=== PATIENT | male | born 1970 | race Caucasian/White ===

== ENCOUNTER 2020-05-05 12:38 | Inpatient (IN) | payer MEDICAID, OTHER, SELFPAY ==
[~2020-05-05] VITALS: Ht 185.4 cm; Wt 88.5 kg
[2020-05-05 14:03] LABS: BASO # 0.1 10^3/uL (0.0-0.2); BASO % 0.3 % (0.0-1.0); EOS # 0.2 10^3/uL (0.0-0.5); EOS % 1.1 % (0.0-3.0); HEMATOCRIT 45.2 % (42.0-52.0); HEMOGLOBIN 14.9 g/dl (13.5-17.5); LYMPH # 2.4 10^3/uL (1.5-5.0); LYMPH % 11.4 % (24.0-44.0); MEAN CORPUSCULAR HEMOGLOBIN 29.4 pg (27.0-33.0); MEAN CORPUSCULAR VOLUME 89.3 fl (80.0-96.0); MONO # 1.6 10^3/uL (0.0-0.8); MONO % 7.8 % (0.0-5.0); NEUTROPHILS # 16.5 10^3/uL (1.5-8.5); NEUTROPHILS % 78.9 % (36.0-66.0); PLATELET COUNT, AUTOMATED 265 10^3/uL (150-450); RED BLOOD COUNT 5.06 10^6/uL (4.30-6.10); WHITE BLOOD COUNT 20.9 10^3/uL (4.0-10.0)
[2020-05-05 14:36] LABS: ERYTHROCYTE SEDIMENTATION RATE 15 mm/hr (0-20)
[2020-05-05] MEDS ORDERED: VANCOMYCIN HCL 1,750 MG in D5W 250 ML IV ONE (15:15)
[2020-05-05] MEDS ORDERED: VANCOMYCIN HCL 1,000 MG, VIAL MATE ADAPTER 1 EACH in D5W 250 ML IV ONE (15:30)
[2020-05-05] MEDS ORDERED: VANCOMYCIN HCL 750 MG, VIAL MATE ADAPTER 1 EACH in D5W 250 ML IV ONE (15:30)
[2020-05-05] MEDS ORDERED: SODIUM CHLORIDE 0.9% 1000ML IV SCH (15:30)
[2020-05-05] MEDS ORDERED: ISOVUE-370 76% 100ML VIAL As Ordered ONE (15:32)
--- NOTE | 2020-05-05 15:32 | HPEPDOC ---
General Date of Admission 05/05/20 Date of Service: May 05, 2020 Chief Complaint The patient is a 49-year-old male admitted with a reason for visit of Arm Pain. Source: Patient Timing/Duration: 24 hours Severity: Moderate History of Present Illness Patient is 49 years old male with past medical history of drug abuse presented to the hospital with redness of right antecubital area. Patient stated that yesterday he tried to inject methamphetamine but broke his needle and part of the needle was left inside antecubital area. Today in the morning he noticed significant swelling and erythema of the right antecubital area. In ER patient was found to have low-grade fever with leukocytosis 20.9 and elevated CRP. Patient also stated that he didn't see primary care physician for years. He denied chills, chest pain, palpitations, diarrhea or dysuria Home Medications No Active Prescriptions or Reported Meds Allergies Coded Allergies: Penicillins (Verified Allergy, Unknown, hives, 05/05/20) Past Medical History Medical History Polysubstance abuse Family History I personally reviewed family history and found not pertinent Social History * Smoker: Denies Alcohol: occationally Drugs: marijuana, other (methamphetamine) A-FIB/CHADSVASC A-FIB History Current/History of A-Fib/PAF?: No Current PO Anticoag Therapy: No Review of Systems Constitutional: Reports: Fever; Denies: Chills Eyes: Denies: Pain ENT: Denies: Head Aches Skin: Reports: Other (right antecubital erythema) Pulmonary: Denies: Dyspnea Cardiovascular: Denies: Chest Pain Gastrointestinal: Denies: Nausea Genitourinary: Denies: Dysuria, Frequency Hematologic: Denies: Bruising Endocrine: Denies: Polydipsia, Polyphagia Musculoskeletal: Reports: Arm Pain (right antecubital pain); Denies: Neck Pain Neurological: Denies: Weakness Psych: Reports: Mood Normal Physical Examination General Exam: Positive: Alert, Cooperative Eye Exam: Positive: PERRLA ENT Exam: Positive: Atraumatic Neck Exam: Positive: Supple; Negative: JVD Chest Exam: Positive: Clear to auscultation Heart Exam: Positive: Rate Normal, Tachycardic Telemetry: Positive: No significant arrhythmia, Sinus Abdomen Exam: Positive: Normal bowel sounds Extremity Exam: Negative: Clubbing Skin Exam: Positive: Nl turgor and temperature Neuro Exam: Positive: Normal Gait Psych Exam: Positive: Mental status NL Vital Signs Vital Signs Date Time Temp Pulse Resp B/P (MAP) Pulse Ox O2 Delivery O2 Flow Rate FiO2 05/05/20 13:06 05/05/20 12:38 100.0 101 24 98 Room Air Laboratory Data Labs 24H Laboratory Tests 2 05/05/20 13:48: Immature Granulocyte % (Auto) 0.5, Neutrophils (%) (Auto) 78.9H, Lymphocytes (%) (Auto) 11.4L, Monocytes (%) (Auto) 7.8H, Eosinophils (%) (Auto) 1.1, Basophils (%) (Auto) 0.3, Neutrophils # (Auto) 16.5H, Lymphocytes # (Auto) 2.4, Monocytes # (Auto) 1.6H, Eosinophils # (Auto) 0.2, Basophils # (Auto) 0.1, Nucleated Red Blood Cells % (auto) 0.0, Erythrocyte Sedimentation Rate 15, Lactic Acid Level 1.3, C-Reactive Protein, Quantitative 7.70H 05/05/20 13:50: POC Glucose (Misc Panel) 114H, POC Sodium (Misc Panel) 134L, POC Potassium (Misc Panel) 4.3, POC Chloride (Misc Panel) 98, POC Total CO2 (Misc Panel) 27.0, POC Blood Urea Nitrogen (Misc Panel 17, POC Ionized Calcium (Misc Panel) 4.0L, POC Creatinine (Misc Panel) 0.7, POC Hematocrit (Misc Panel) 48.0 CBC/BMP Laboratory Tests 05/05/20 13:48 Microbiology Microbiology 05/05/20 Blood Culture, Received Pending 05/05/20 Blood Culture, Received Pending Assessment/Plan Patient is 49 years old male with past medical history of drug abuse presented to the hospital with redness of right antecubital area. Patient stated that yesterday he tried to inject methamphetamine but broke his needle and part of the needle was left inside antecubital area. Today in the morning he noticed significant swelling and erythema of the right antecubital area. In ER patient was found to have low-grade fever with leukocytosis 20.9 and elevated CRP. Patient also stated that he didn't see primary care physician for years. He denied chills, chest pain, palpitations, diarrhea or dysuria Problems (1) Sepsis Status: Acute Problem Text: Secondary to right antecubital cellulitis due to a broken needle Patient has leukocytosis, fever and tachycardia Blood culture Vancomycin IV, meropenem IV IV fluid Case was discussed with Dr. Morales CT of right antecubital area (2) Cellulitis Status: Acute Problem Text: See above Plan / VTE VTE Prophylaxis Ordered?: Yes RAINA GR DO May 05, 2020 15:32
[2020-05-05 17:00] VITALS: BP 155/89
[2020-05-05] MEDS: ACETAMINOPHEN TAB 650MG DOSE (2X325MG) PO PRN (17:38)
[2020-05-05] MEDS: MEROPENEM INJ 1 GM in IV 1 EA IV SCH (17:39)
[2020-05-05] MEDS: NS 1,000 ML IV SCH ×2 (17:39→21:44)
[2020-05-05] MEDS: traMADol 50 MG TAB PO PRN (18:25)
[2020-05-05 20:00] VITALS: BP 148/72
[2020-05-05] MEDS: HEPARIN SOD (PORCINE) 5000UNITS/ML 1ML VIAL/SYRINGE SC SCH (21:44)
[2020-05-05] MEDS: VANCOMYCIN HCL 1,000 MG, VIAL MATE ADAPTER 1 EACH in D5W 250 ML IV SCH (21:44)
[2020-05-06] VITALS (10 sets, daily range): BP systolic 123–151; BP diastolic 70–90
[2020-05-06] MEDS: MEROPENEM INJ 1 GM in IV 1 EA IV SCH ×3 (01:32→18:00)
[2020-05-06] MEDS: traMADol 50 MG TAB PO PRN (01:33)
[2020-05-06] MEDS: ACETAMINOPHEN TAB 650MG DOSE (2X325MG) PO PRN ×2 (04:48→22:06)
[2020-05-06] MEDS: NS 1,000 ML IV SCH ×3 (04:48→18:00)
[2020-05-06] MEDS: VANCOMYCIN HCL 1,000 MG, VIAL MATE ADAPTER 1 EACH in D5W 250 ML IV SCH ×3 (05:28→22:05)
--- NOTE | 2020-05-06 07:25 | REP ---
REASON: Needle-like pain. FINDINGS: No acute fracture or destructive osseous lesion. Seen only on the lateral view in the region of the antecubital fossa, there is a 1 cm sized linear, possibly metallic radiodensity, which could be a portion of a needle. This needs to be correlated clinically. Electronically Signed by Major Marie DO 05/06/2020 07:59 A
[2020-05-06] MEDS ORDERED: LIDOCAINE 2% 100MG/5ML SDV (FOR ANES.) As Ordered ONE (07:32)
[2020-05-06] MEDS ORDERED: dexameTHASONE 4 MG/ML 1ML VIAL (J1100 PER 1MG) As Ordered ONE (07:32)
[2020-05-06] MEDS ORDERED: ONDANSETRON 4MG/2ML VIAL As Ordered ONE (07:32)
[2020-05-06] MEDS ORDERED: propofoL 200 MG/20 ML VIAL As Ordered ONE ×3 (07:32→10:34)
[2020-05-06] MEDS ORDERED: MIDAZOLAM INJ 2MG/2ML VIAL (J2250 PER 1MG) As Ordered ONE (07:33)
[2020-05-06] MEDS ORDERED: fentaNYL 100 MCG/2 ML INJECTION (J3010) As Ordered ONE (07:33)
--- NOTE | 2020-05-06 08:02 | REP ---
DEEP VENOUS ULTRASOUND RIGHT UPPER EXTREMITY: REASON: Pain and swelling. PRIORS: None. TECHNIQUE: Multiple ultrasonographic images of the deep venous structures of the right upper extremity were obtained to rule out deep venous thrombosis. FINDINGS: There is no abnormal echogenic material seen in any of the visualized deep venous structures of the right upper extremity. Coaptation where applicable is appropriate throughout. Augmentation shows an expected response throughout. A 5 cm in length area of the cephalic vein is occluded. IMPRESSION: No evidence of deep vein thrombosis in the right upper extremity; however, there is a 5.8 cm length area of occluded cephalic vein, which is not necessarily considered part of the deep venous system. Electronically Signed by Major Marie DO 05/06/2020 08:56 A
[2020-05-06 08:47] LABS: HEMATOCRIT 41.7 % (42.0-52.0); HEMOGLOBIN 13.8 g/dl (13.5-17.5); MEAN CORPUSCULAR HEMOGLOBIN 29.6 pg (27.0-33.0); MEAN CORPUSCULAR HGB CONC 33.1 g/dl (32.0-36.5); MEAN CORPUSCULAR VOLUME 89.3 fl (80.0-96.0); PLATELET COUNT, AUTOMATED 215 10^3/uL (150-450); RED BLOOD COUNT 4.67 10^6/uL (4.30-6.10); WHITE BLOOD COUNT 20.4 10^3/uL (4.0-10.0)
--- NOTE | 2020-05-06 09:04 | REP ---
REASON: Assess for abscess. CONTRAST: 100 mL Isovue-370. In the deep subcutanea of the antecubital fossa midline, there is a 7 mm long x 1.6 mm wide linear metallic-appearing radiodensity. This is consistent with a portion of a known needle which, by history, broke off into the patient's arm. There is diffuse edema throughout the subcutaneous tissues. In the lateral anterior soft tissues in the region of the antecubital fossa, there is a 3 x 1.6 x 2.6 cm sized more focal area of low density surrounded by somewhat irregular contrast enhancement. No abnormal air densities are seen within this region. There is no fracture. There is no evidence of a joint effusion. IMPRESSION: 1. Foreign body, as described above. 2. Diffuse edema. 3. Possible developing abscess in the anterolateral soft tissues just proximal to the antecubital fossa. Electronically Signed by Major Marie DO 05/06/2020 09:37 A
[2020-05-06] MEDS ORDERED: BUPIVACAINE HCL 0.25% 30ML VIAL As Ordered ONE (09:08)
[2020-05-06] MEDS ORDERED: LIDOCAINE 1% SDV 30ML VIAL As Ordered ONE (09:08)
[2020-05-06 09:13] LABS: BLOOD UREA NITROGEN 6 MG/DL (7-18); CALCIUM LEVEL 8.3 MG/DL (8.5-10.1); CARBON DIOXIDE LEVEL 27 MEQ/L (21-32); CHLORIDE LEVEL 104 MEQ/L (98-107); CREATININE FOR GFR 0.71 MG/DL (0.70-1.30); GLOMERULAR FILTRATION RATE > 60.0 (>56); GLUCOSE, FASTING 104 MG/DL (70-100); MAGNESIUM LEVEL 1.9 MG/DL (1.8-2.4); POTASSIUM SERUM 4.1 MEQ/L (3.5-5.1); SODIUM LEVEL 139 MEQ/L (136-145)
--- NOTE | 2020-05-06 09:40 | CR.PDOC ---
General Surgery Consultation Date of Consultation 05/06/20 History and Physical CONSULT REPORT FOR: Hospitalist service REASON FOR CONSULTATION: Right arm swelling HISTORY OF PRESENT ILLNESS: Patient is a 49-year-old male who admits to IV use, came in to the emergency room yesterday with acute onset of right arm swelling following using a needle broke off on his right antecubital fossa the day before while trying to shoot up. He denies any accompanying fevers or chills. PAST MEDICAL HISTORY: 1. History of active recreational drug use PAST SURGICAL HISTORY: INCLUDES: 1. None. ALLERGIES: Please see below. FAMILY HISTORY: Noncontributory HOME MEDICATIONS: Please see below. REVIEW OF SYSTEMS: GENERAL: Patient reports fever 2 days. HEENT: Denies blurred vision and double vision. Denies ear symptoms. Denies hoarseness. NECK: Denies any neck pain CARDIOVASCULAR: Denies chest pain and palpitations. MUSCULOSKELETAL: Arm swelling per HPI. Denies back pain. SKIN: Cellulitis and soft tissue infection on the right arm. NEUROLOGIC: Denies headache, stroke and transient ischemic attack. PSYCHIATRIC: Denies anxiety and depression. HEMATOLOGY/ONCOLOGY: Denies bleeding or clotting disorder. PULMONARY: Denies chronic cough, dyspnea and wheezing. GASTROINTESTINAL: Denies rectal bleeding, family history of colon cancer, consti pation, diarrhea, dysphagia, heartburn and jaundice. GENITOURINARY: Denies dysuria, frequency, hematuria and nocturia. ENDOCRINE: Denies polydipsia, polyphagia, polyuria, heat or cold intolerance. INFECTIOUS: Denies any recent upper respiratory tract infection, UTI, need for use of antibiotics. NUTRITION: Reports poor appetite. PHYSICAL EXAMINATION: VITALS SIGNS: Please see below. GENERAL APPEARANCE:Patient seen, laying in bed, awake, alert, and oriented. Comfortable, in no acute distress. SKIN: Warm and moist. HEENT: Normocephalic, atraumatic. [place] palpebral conjunctiva, anicteric sclerae. Lips and mucosa appear moist. NECK: Supple, no thyromegaly. No obvious jugular venous distention. LUNGS: Clear to auscultation bilaterally. No wheezing appreciated. HEART: No chest wall abnormalities. Regular rate and rhythm with no murmurs appreciated. ABDOMEN: Abdomen is , soft, nontender EXTREMITIES: Examination of his right arm shows diffuse swelling of the upper arm to the mid forearm. The rest seems to be not involved. There is diffuse swelling, edema at the antecubital fossa most pronounced over the upper portion. There is some shallow ulcer/erosion around the midpoint of the antecubital fossa right where he tells me he introduced the needle. There is no external sign of where the needle is retained. Area is tender to palpation. Patient is not able to flex the elbow due to the degree of swelling. There is some extension of the erythema on the upper arm with serpiginous like erythema. ANCILLARIES: . LABORATORY DATA: Please see below. IMAGING STUDIES: . CT right upper extremity In the deep subcutanea of the antecubital fossa midline, there is a 7 mm long x 1.6 mm wide linear metallic-appearing radiodensity. This is consistent with a portion of a known needle which, by history, broke off into the patient's arm. There is diffuse edema throughout the subcutaneous tissues. In the lateral anterior soft tissues in the region of the antecubital fossa, there is a 3 x 1.6 x 2.6 cm sized more focal area of low density surrounded by somewhat irregular contrast enhancement. No abnormal air densities are seen within this region. IMPRESSION AND PLAN: Cellulitis and possibly abscess over the right antecubital fossa Retained needle IV drug use Patient will be brought to the operating room for exploration of that area, removal of foreign body and I there most likely is an area of abscess on CT with an irregular fluid collection. Externally the upper portion of the antecubital fossa is indurated and swollen diffusely with extension of the erythema slightly towards the upper arm. He was consented for I&D and exploration of the wound to remove the foreign body. . Vital Signs Vital Signs Date Time Temp Pulse Resp B/P (MAP) Pulse Ox O2 Delivery O2 Flow Rate FiO2 05/06/20 08:00 99.4 80 19 151/89 (109) 98 Room Air I&Os I&O- Last 24 Hours up to 6 AM 05/06/20 06:00 Intake Total 1250 ml Output Total 0 ml Balance 1250 ml Laboratory Data Labs 24H Laboratory Tests 2 05/05/20 13:48: Immature Granulocyte % (Auto) 0.5, Neutrophils (%) (Auto) 78.9H, Lymphocytes (%) (Auto) 11.4L, Monocytes (%) (Auto) 7.8H, Eosinophils (%) (Auto) 1.1, Basophils (%) (Auto) 0.3, Neutrophils # (Auto) 16.5H, Lymphocytes # (Auto) 2.4, Monocytes # (Auto) 1.6H, Eosinophils # (Auto) 0.2, Basophils # (Auto) 0.1, Nucleated Red Blood Cells % (auto) 0.0, Erythrocyte Sedimentation Rate 15, Lactic Acid Level 1.3, C-Reactive Protein, Quantitative 7.70H 05/05/20 13:50: POC Glucose (Misc Panel) 114H, POC Sodium (Misc Panel) 134L, POC Potassium (Misc Panel) 4.3, POC Chloride (Misc Panel) 98, POC Total CO2 (Misc Panel) 27.0, POC Blood Urea Nitrogen (Misc Panel 17, POC Ionized Calcium (Misc Panel) 4.0L, POC Creatinine (Misc Panel) 0.7, POC Hematocrit (Misc Panel) 48.0 05/06/20 08:28: Nucleated Red Blood Cells % (auto) 0.0, Anion Gap 8, Glomerular Filtration Rate > 60.0, Calcium Level 8.3L, Magnesium Level 1.9 CBC/BMP Laboratory Tests 05/05/20 13:48 05/06/20 08:28 Microbiology Microbiology 05/06/20 Respiratory Virus Panel (PCR) (PRIYANKA) - Final, Complete 05/05/20 Blood Culture, Received Pending 05/05/20 Blood Culture, Received Pending Home Medications Scheduled Doxycycline Monohydrate (Doxycycline) 100 Mg Capsule, 100 MG PO BID Allergies Coded Allergies: Penicillins (Verified Allergy, Unknown, hives, 05/05/20) ROMÁN STUBBS MD May 06, 2020 09:40
[2020-05-06] MEDS ORDERED: ACETAMINOPHEN 1000MG 100ML IV BTL (OFIRMEV) (J0131 PER 10MG) As Ordered ONE (10:47)
[2020-05-06] MEDS ORDERED: KETOROLAC 60MG 2ML VIAL As Ordered ONE (10:47)
[2020-05-06] MEDS ORDERED: fentaNYL 100 MCG/2 ML INJECTION (J3010) IV PRN (11:15)
[2020-05-06] MEDS ORDERED: ONDANSETRON 4MG/2ML VIAL IV PRN (11:15)
[2020-05-06] MEDS ORDERED: LR 1,000 ML IV SCH (11:15)
--- NOTE | 2020-05-06 12:10 | REP ---
REASON FOR EXAM: Status post extraction of foreign body. Four portable images have been placed in this single folder for review. They are of different times. They are compared to the humeral exam of yesterday. I cannot confirm the time frames on the images are actual times. There is an image with the time 10:41:04 a.m. showing a linear metallic radiodensity in the lateral soft tissues adjacent to the radial head. The image 10:42:29 a.m. obtained in the same fashion as 10:41:04 a.m. no longer identifies that linear radiodensity, which is consistent with the clinical diagnosis of successful extraction of a known linear foreign body. Electronically Signed by Major Marie DO 05/06/2020 12:19 P
--- NOTE | 2020-05-06 14:16 | IPNPDOC ---
Text Note Date of Service The patient was seen on 05/06/20. NOTE Subjective: Incision and drainage was done today, patient tolerated procedure well. He denies fever, chills, nausea, vomiting, diarrhea or dysuria Objective: VITAL SIGNS: Please see below. GENERAL: awake, alert, NAD HEENT: NCAT, anicteric sclera, [place] NECK: supple, no JVD CARDIOVASCULAR EXAMINATION: NS1S2, regular rate/rhythm RESPIRATORY EXAMINATION: CTA b/l, no wheezes/rales/rhonchi ABDOMINAL EXAMINATION: positive bowel sounds x 4, NT EXTREMITIES: no cyanosis, clubbing, edema of LE b/l, right antecubital area covered with dressing SKIN: warm, no rashes. NEUROLOGICAL EXAMINATION: AAO x 3, no motor/sensory deficits PSYCHIATRIC EXAMINATION: calm, normal affect CT right upper extremity In the deep subcutanea of the antecubital fossa midline, there is a 7 mm long x 1.6 mm wide linear metallic-appearing radiodensity. This is consistent with a portion of a known needle which, by history, broke off into the patient's arm. There is diffuse edema throughout the subcutaneous tissues. In the lateral anterior soft tissues in the region of the antecubital fossa, there is a 3 x 1.6 x 2.6 cm sized more focal area of low density surrounded by somewhat irregular contrast enhancement. No abnormal air densities are seen within this region. Patient is 49 years old male with past medical history of drug abuse presented to the hospital with redness of right antecubital area. Patient stated that yesterday he tried to inject methamphetamine but broke his needle and part of the needle was left inside antecubital area. Today in the morning he noticed significant swelling and erythema of the right antecubital area. In ER patient was found to have low-grade fever with leukocytosis 20.9 and elevated CRP. Broad-spectrum antibiotics started, on 05/06/20 incision and drainage was done 1) Sepsis Secondary to right antecubital cellulitis due to a broken needle Patient had leukocytosis, fever and tachycardia on admission On 05/06/20 patient continues to have leukocytosis Blood culture negative for 24 hours Continue with Vancomycin IV, meropenem IV Continue with IV fluid Await second set of blood culture (2) Cellulitis see CT scan report above 05/06/20 incision and drainage was done by Letty Up I+O VS, Letty, I+O Laboratory Tests 05/06/20 08:28 Vital Signs Date Time Temp Pulse Resp B/P (MAP) Pulse Ox O2 Delivery O2 Flow Rate FiO2 05/06/20 12:45 98.1 75 18 147/87 (107) 97 Room Air I&O- Last 24 Hours up to 6 AM 05/06/20 05:59 Intake Total 1250 ml Output Total 0 ml Balance 1250 ml RAINA GR DO May 06, 2020 14:16
[2020-05-06] MEDS: HEPARIN SOD (PORCINE) 5000UNITS/ML 1ML VIAL/SYRINGE SC SCH (22:05)
[2020-05-07 02:00] VITALS: BP 119/67
[2020-05-07] MEDS: MEROPENEM INJ 1 GM in IV 1 EA IV SCH ×3 (02:54→17:18)
[2020-05-07] MEDS: NS 1,000 ML IV SCH ×3 (02:55→14:40)
[2020-05-07 05:41] LABS: VANCOMYCIN LEVEL TROUGH 8.7 UG/ML (10.0-20.0)
[2020-05-07 06:00] VITALS: BP 111/66
[2020-05-07] MEDS ORDERED: VANCOMYCIN HCL 1,000 MG, VIAL MATE ADAPTER 1 EACH in D5W 250 ML IV SCH (06:00)
[2020-05-07] MEDS: HEPARIN SOD (PORCINE) 5000UNITS/ML 1ML VIAL/SYRINGE SC SCH ×2 (07:57→20:56)
[2020-05-07 08:07] LABS: BASO % 0.2 % (0.0-1.0); EOS % 0.2 % (0.0-3.0); HEMATOCRIT 37.5 % (42.0-52.0); HEMOGLOBIN 12.2 g/dl (13.5-17.5); LYMPH # 2.1 10^3/uL (1.5-5.0); LYMPH % 10.9 % (24.0-44.0); MEAN CORPUSCULAR HEMOGLOBIN 29.6 pg (27.0-33.0); MEAN CORPUSCULAR HGB CONC 32.5 g/dl (32.0-36.5); MONO # 1.6 10^3/uL (0.0-0.8); MONO % 8.4 % (0.0-5.0); NEUTROPHILS # 15.7 10^3/uL (1.5-8.5); NEUTROPHILS % 79.7 % (36.0-66.0); PLATELET COUNT, AUTOMATED 221 10^3/uL (150-450); RED BLOOD COUNT 4.12 10^6/uL (4.30-6.10); WHITE BLOOD COUNT 19.6 10^3/uL (4.0-10.0)
[2020-05-07 08:13] LABS: ALBUMIN 2.7 GM/DL (3.2-5.2); ALT/SGPT 19 U/L (12-78); BILIRUBIN,TOTAL 0.4 MG/DL (0.2-1.0); BLOOD UREA NITROGEN 7 MG/DL (7-18); CALCIUM LEVEL 8.3 MG/DL (8.5-10.1); CARBON DIOXIDE LEVEL 27 MEQ/L (21-32); CHLORIDE LEVEL 108 MEQ/L (98-107); CREATININE FOR GFR 0.66 MG/DL (0.70-1.30); GLOMERULAR FILTRATION RATE > 60.0 (>56); GLUCOSE, FASTING 120 MG/DL (70-100); POTASSIUM SERUM 4.1 MEQ/L (3.5-5.1); SODIUM LEVEL 140 MEQ/L (136-145); TOTAL PROTEIN 6.1 GM/DL (6.4-8.2)
[2020-05-07] MEDS: traMADol 50 MG TAB PO PRN (10:25)
[2020-05-07 14:00] VITALS: BP 131/76
--- NOTE | 2020-05-07 18:49 | IPNPDOC ---
Text Note Date of Service The patient was seen on 05/07/20. NOTE SUBJECTIVE: Patient was seen and examined this morning lying comfortably in bed. He states he is feeling well. He notes some pain in his arm but states it is tolerable. He denies any fevers or chills overnight. No new concerns. OBJECTIVE: VITAL SIGNS: See below GENERAL: Alert, comfortable, in no acute distress HEENT: Normocephalic, atraumatic, moist mucous membranes NECK: Supple, trachea midline, no lymphadenopathy, no JVD CARDIOVASCULAR: Regular rate and rhythm, normal S1 and S2. No murmurs, rubs, or gallops RESPIRATORY: Clear to auscultation bilaterally with equal air entry bilaterally. No wheezing, rhonchi, or rales. ABDOMEN: Soft, nontender, nondistended, bowel sounds present, no masses or hepatosplenomegaly appreciated EXTREMITIES: No cyanosis or edema. Pulses 2+/4 in bilateral upper and lower extremities. Right upper arm and antecubital fossa covered in a clean, dry dressing without surrounding erythema or discharge noted. SKIN: [place], warm, dry NEUROLOGIC: Alert and oriented x3 to person, place and time. No focal deficits appreciated PSYCHIATRIC: Mood and affect appropriate ASSESSMENT/PLAN: 59-year-old male who presented with right arm pain due to a needle breaking off while he was injecting methamphetamine #Sepsis secondary to right antecubital cellulitis. SIRS criteria met on admission with leukocytosis, fever and tachycardia. Blood cultures 2 negative at 48 hours. Persistent leukocytosis, repeat blood cultures and check pro-calcitonin, trend CRP. IV antibiotics with meropenem. Vancomycin has been discontinued due to negative MRSA screen. Continue with IV fluid Dr. Morales from general surgery consulted, appreciate his input and r ecommendations. Status post I&D, unclear if the needle was fully removed. Consider repeating CT of arm tomorrow if his leukocytosis persists to rule out retained needle fragment. Operative wound culture pending. # IV drug abuse DVT prophylaxis: Subcutaneous heparin Disposition: Pending clinical improvement I, Valdemar Gr, have independently examined this patient and performed my own physical exam, as well as reviewed the documentation. I have discussed in detail with the resident / student the findings and plan of treatment as documented by the resident / student. I agree with their findings and treatment plan. I will continue to follow the patient during this hospital stay. Letty MANN, I+O VS, Fishbone, I+O Laboratory Tests 05/07/20 04:57 Vital Signs Date Time Temp Pulse Resp B/P (MAP) Pulse Ox O2 Delivery O2 Flow Rate FiO2 05/07/20 14:00 97.9 79 18 131/76 (94) 99 Room Air I&O- Last 24 Hours up to 6 AM 05/07/20 06:00 Intake Total 3780 ml Output Total 2590 ml Balance 1190 ml SHIN GARCIA D.O. May 07, 2020 18:49 VALDEMAR GR DO May 08, 2020 16:39
[2020-05-07 22:00] VITALS: BP_SYST 129; BP_SYST 135; BP_DIAS 75; BP_DIAS 96
[2020-05-08] MEDS: MEROPENEM INJ 1 GM in IV 1 EA IV SCH ×2 (02:41→09:35)
[2020-05-08] MEDS: NS 1,000 ML IV SCH ×3 (02:41→09:41)
[2020-05-08 06:00] VITALS: BP 138/91
[2020-05-08 06:44] LABS: HEMOGLOBIN 12.4 g/dl (13.5-17.5); MEAN CORPUSCULAR HEMOGLOBIN 29.7 pg (27.0-33.0); MEAN CORPUSCULAR HGB CONC 32.6 g/dl (32.0-36.5); MEAN CORPUSCULAR VOLUME 90.9 fl (80.0-96.0); PLATELET COUNT, AUTOMATED 248 10^3/uL (150-450); RED BLOOD COUNT 4.18 10^6/uL (4.30-6.10); WHITE BLOOD COUNT 11.3 10^3/uL (4.0-10.0)
[2020-05-08 07:06] LABS: BLOOD UREA NITROGEN 6 MG/DL (7-18); C REACTIVE PROTEIN QUANTITATIV 4.68 MG/DL (0.00-0.30); CALCIUM LEVEL 8.6 MG/DL (8.5-10.1); CARBON DIOXIDE LEVEL 29 MEQ/L (21-32); CHLORIDE LEVEL 106 MEQ/L (98-107); CREATININE FOR GFR 0.66 MG/DL (0.70-1.30); GLOMERULAR FILTRATION RATE > 60.0 (>56); GLUCOSE, FASTING 92 MG/DL (70-100); POTASSIUM SERUM 3.6 MEQ/L (3.5-5.1); SODIUM LEVEL 138 MEQ/L (136-145)
[2020-05-08] MEDS: HEPARIN SOD (PORCINE) 5000UNITS/ML 1ML VIAL/SYRINGE SC SCH (09:35)
[2020-05-08] MEDS ORDERED: DOXY-350 PO (10:55)
--- NOTE | 2020-05-08 12:31 | IPNPDOC ---
Text Note Date of Service The patient was seen on 05/08/20. NOTE POD2 I&D of right arm abscess, removal of foreign body wound examined erythema resolved, some left over arm swelling wound bed clean Plan continue with iodoform packingfor a week antibiiotics per medical service ok t d/c home VS,Fishbone, I+O VS, Fishbone, I+O Laboratory Tests 05/08/20 06:05 Vital Signs Date Time Temp Pulse Resp B/P (MAP) Pulse Ox O2 Delivery O2 Flow Rate FiO2 05/08/20 06:00 98.4 78 17 138/91 (107) 99 Room Air I&O- Last 24 Hours up to 6 AM 05/08/20 06:00 Intake Total 5820 ml Output Total 750 ml Balance 5070 ml ROMÁN STUBBS MD May 08, 2020 12:31
--- NOTE | 2020-05-08 16:53 | DS.PDOC ---
Discharge Summary General Date of Admission May 05, 2020 at 15:14 Date of Discharge 05/08/2020 Primary Care Physician: MALIK SMALLWOOD PA-C Attending Physician: RAINA GR DO Specialist/Consultants Involve: ROMÁN MORALES MD Discharge Summary PROCEDURES PERFORMED DURING STAY: Incision and drainage of right arm abscess ADMITTING DIAGNOSES: 1. Sepsis secondary to right antecubital abscess. 2. Cellulitis, right antecubital fossa DISCHARGE DIAGNOSES: 1. Right antecubital abscess status post I&D. 2. Cellulitis, right antecubital fossa COMPLICATIONS/CHIEF COMPLAINT: Sepsis. HISTORY OF PRESENT ILLNESS: 49-year-old male with a history of IV drug abuse, presented to the hospital with erythema over the right antecubital area. He stated that the day prior he was injecting himself with medical amphetamine and broke his needle, leaving part of the needle in his arm. The following morning he noticed significant swelling and erythema over the area. On evaluation in the emergency room, he was found to have a low-grade fever and leukocytosis with elevated CRP. HOSPITAL COURSE: The patient was admitted to the hospital and started on broad- spectrum antibiotics with IV vancomycin and IV meropenem for sepsis secondary to cellulitis. Blood cultures were drawn. CT scan of the right antecubital area revealed retained needle and abscess. Dr. Morales of general surgery was consulted for incision and drainage. Cultures taken during incision and drainage were negative for any organism. MRSA screen was negative and vancomycin was discontinued. Initial blood cultures remained negative after 72 hours. Repeat blood cultures were drawn due to initial persistence of elevated white blood cell count. Subsequently his white blood cell count and CRP both trended down. He was afebrile for at least 24 hours prior to discharge. The patient was discharged on a 10 day course of oral doxycycline. He will continue with iodoform packing for a week and follow-up with general surgery outpatient. He will also establish care with a primary care provider. DISCHARGE MEDICATIONS: Please see below. ALLERGIES: Please see below. PHYSICAL EXAMINATION ON DISCHARGE: VITAL SIGNS: Please see below. GENERAL: Alert, comfortable, in no acute distress HEENT: Normocephalic, atraumatic, moist mucous membranes NECK: Supple, trachea midline, no lymphadenopathy, no JVD CARDIOVASCULAR: Regular rate and rhythm, normal S1 and S2. No murmurs, rubs, or gallops RESPIRATORY: Clear to auscultation bilaterally with equal air entry bilaterally. No wheezing, rhonchi, or rales. ABDOMEN: Soft, nontender, nondistended, bowel sounds present, no masses or hepatosplenomegaly appreciated EXTREMITIES: No cyanosis or edema. Pulses 2+/4 in bilateral upper and lower extremities. Right upper arm and antecubital fossa covered in a clean, dry dressing without surrounding erythema or discharge noted. SKIN: [place], warm, dry NEUROLOGIC: Alert and oriented x3 to person, place and time. No focal deficits appreciated PSYCHIATRIC: Mood and affect appropriate LABORATORY DATA: Please see below. IMAGING: - Humerus XR: No acute fracture or destructive osseous lesion. Seen only on the lateral view in the region of the antecubital fossa, there is a 1 cm sized linear, possibly metallic radiodensity, which could be a portion of a needle. - Vascular US: No evidence of deep vein thrombosis in the right upper extremity; however, there is a 5.8 cm length area of occluded cephalic vein, which is not necessarily considered part of the deep venous system. - CT upper extremity: 1. Foreign body, as described in full report as "7 mm long x 1.6 mm wide linear metallic-appearing radiodensity" 2. Diffuse edema. 3. Possible developing abscess in the anterolateral soft tissues just proximal to the antecubital fossa. - XR elbow: There is an image with the time 10:41:04 a.m. showing a linear metallic radiodensity in the lateral soft tissues adjacent to the radial head. The image 10:42:29 a.m. obtained in the same fashion as 10:41:04 a.m. no longer identifies that linear radiodensity, which is consistent with the clinical diagnosis of successful extraction of a known linear foreign body. PROGNOSIS: Fair ACTIVITY: As tolerated. DIET: As tolerated. DISCHARGE PLAN: Home on oral antibiotics, follow up with PCP and general surgery DISPOSITION: 01 Home, Self-Care. DISCHARGE INSTRUCTIONS: 1. Follow up with PCP and General surgery as scheduled 2. Complete full course of antibiotics ITEMS TO FOLLOWUP ON ON OUTPATIENT: 1. Right arm cellulitis and abscess s/p I&D 2. Establish primary care for preventative care and screenings DISCHARGE CONDITION: Stable. TIME SPENT ON DISCHARGE: Greater than 35 minutes. Vital Signs/I&Os Vital Signs Date Time Temp Pulse Resp B/P (MAP) Pulse Ox O2 Delivery O2 Flow Rate FiO2 05/08/20 06:00 98.4 78 17 138/91 (107) 99 Room Air I&O- Last 24 Hours up to 6 AM 05/08/20 06:00 Intake Total 5820 ml Output Total 750 ml Balance 5070 ml Laboratory Data Labs 24H Laboratory Tests 2 05/08/20 06:05: Nucleated Red Blood Cells % (auto) 0.0, Anion Gap 3L, Glomerular Filtration Rate > 60.0, Calcium Level 8.6, C-Reactive Protein, Quantitative 4.68H CBC/BMP Laboratory Tests 05/08/20 06:05 Microbiology Microbiology 05/07/20 Blood Culture, Received Pending 05/07/20 Blood Culture - Preliminary, Resulted No growth after 24 hours . All specim... 05/06/20 Gram Stain - Final, Complete 05/06/20 Abscess Culture - Final, Complete 05/06/20 Anaerobic Culture - Final, Complete 05/06/20 Respiratory Virus Panel (PCR) (PRIYANKA) - Final, Complete 05/05/20 Blood Culture - Preliminary, Resulted No Growth after 72 hours. All specime... 05/05/20 Blood Culture - Preliminary, Resulted No Growth after 72 hours. All specime... Discharge Medications Scheduled Doxycycline Monohydrate (Doxycycline) 100 Mg Capsule, 100 MG PO BID Allergies Coded Allergies: Penicillins (Verified Allergy, Unknown, hives, 05/05/20) SHIN GARCIA D.O. May 08, 2020 16:53
--- NOTE | 2020-07-02 11:28 | ROOPDOC ---
[facility] Report Of Operation Report of Operation DATE OF PROCEDURE: 05/06/20 PREPROCEDURE DIAGNOSES: right arm abscess, retained foreign body. POSTPROCEDURE DIAGNOSES: right arm abscess, broken needle not found. PROCEDURE: Drainage of right arm abscess, US and x-ray evaluation to look for foreign body. SURGEON: Josh Morales MD CHIEF ORTHOPTIST: ANESTHESIA: Monitored anesthesia care with local anesthesia (1% lidocaine mixed with 1/4% Marcaine). ESTIMATED BLOOD LOSS: Approximately 20 mL. COMPLICATIONS: None. REMARKS: Roughly a 5 x 4 cm area of induration and abscess of the right antecubital area. DESCRIPTION OF PROCEDURE: Patient is brought to the operating room. He has been receiving vancomycin IV and meropenem IV his admission to the hospital floor soft tissue infection and abscess related to drug use. He also claims that the needle broke while he was injecting. He was laid supine table his right arm placed on an arm board. Compression boots placed on both lower extremities were DVT prophylaxis. IV sedation with monitored anesthesia care then started. His right arm then prepped and draped in usual sterile fashion. Over the antecubital area is an area about 3 x 2 cm which appears fluctuant with an extension of about 2-3 cm circumferentially of skin thickening and soft tissue induration. We paused for a surgical timeout using both pre-incision safety checklist to verify correct patient, procedure site and additional clinical information prior to beginning the procedure I initially used an ultrasound to look for the possible tract of the needle. There is some slight suggestion of thickening slightly inferior which I marked. I then infiltrated the subcutaneous tissue with local anesthesia and created a cruciate skin incision with immediate drainage of purulent fluid and material. We then enlarged the skin incision to fully evacuate the contents and used to 4 x 4 gauze to debride the area. Again a look for the possible lost needle using palpation and the ultrasound and extended the skin incision to the area where initially thought the needle could be. I did not find any needle both by palpation and by ultrasound. At this point they had the C-arm draped in the used this to look for the needle. I cannot find any evidence of needle also with use of the C-arm and fluoroscopy. At this point the area was checked for hemostasis once satisfied a packed the wound with 1 inch iodoform gauze, bulky gauze dressings and wrapped this with Kerlix roll patient was then awakened and brought to recovery room in stable condition . JOSH MORALES MD Jul 02, 2020 11:28
== END 2020-05-08 13:15 | disposition home or self-care (01) | DRG 710 ==
LOC: M ED 12:38 → M ED INP 15:14 → ENRESERV 16:00 → M MS5PR 17:04
PROVIDERS: ADMIT Internal Medicine; ATTEND Internal Medicine
PROC: 0J9D0ZZ Drainage of Right Upper Arm Subcutaneous Tissue and Fascia, Open Approach (ICD-10-PCS; principal; 2020-05-06 08:00)
DX: A41.9 Sepsis, unspecified organism (principal); L03.113 Cellulitis of right upper limb; Z88.0 Allergy status to penicillin

== ENCOUNTER 2022-07-04 07:51 | Emergency (ER) | payer MEDICAID, OTHER ==
[~2022-07-04] VITALS: Ht 185.4 cm; Wt 85.9 kg
[~2022-07-04 07:51] MED LIST: DOXY-350 PO
[2022-07-04] MEDS ORDERED: NS 1,000 ML IV ONE (08:25)
[2022-07-04 09:23] LABS: BASO % 0.6 % (0.0-1.0); EOS % 0.6 % (0.0-3.0); HEMATOCRIT 43.4 % (42.0-52.0); HEMOGLOBIN 14.1 g/dl (13.5-17.5); LYMPH # 0.6 10^3/uL (1.5-5.0); LYMPH % 8.6 % (24.0-44.0); MEAN CORPUSCULAR HEMOGLOBIN 29.1 pg (27.0-33.0); MEAN CORPUSCULAR HGB CONC 32.5 g/dl (32.0-36.5); MEAN CORPUSCULAR VOLUME 89.5 fl (80.0-96.0); MONO # 0.9 10^3/uL (0.0-0.8); MONO % 13.4 % (2.0-8.0); NEUTROPHILS # 4.9 10^3/uL (1.5-8.5); NEUTROPHILS % 76.2 % (36.0-66.0); PLATELET COUNT, AUTOMATED 200 10^3/uL (150-450); RED BLOOD COUNT 4.85 10^6/uL (4.30-6.10); WHITE BLOOD COUNT 6.4 10^3/uL (4.0-10.0)
[2022-07-04 09:33] LABS: ALBUMIN 3.6 GM/DL (3.2-5.2); BILIRUBIN,DIRECT 0.1 MG/DL (0.0-0.2); BILIRUBIN,TOTAL 0.3 MG/DL (0.2-1.0); MAGNESIUM LEVEL 1.9 MG/DL (1.8-2.4); TOTAL PROTEIN 7.5 GM/DL (6.4-8.2)
[2022-07-04 09:35] LABS: RSV AMPLIFICATION NEGATIVE (NEGATIVE)
[2022-07-04] MEDS ORDERED: ONDANSETRON 4MG 2ML VIAL IV ONE (09:35)
[2022-07-04] MEDS ORDERED: KETOROLAC 30 MG/ML 1ML VIAL IV ONE (09:35)
[2022-07-04 11:59] VITALS: BP 170/95
[2022-07-04] MEDS ORDERED: NIRMATRELVIR/RITONAVIR CO-PACK (EMERGENCY USE AUTH) PO SCH ×2 (14:15→21:00)
== END 2022-07-04 22:43 | disposition home or self-care (01) ==
LOC: M ED 07:51
DX: U07.1 COVID-19 (principal); F17.200 Nicotine dependence, unspecified, uncomplicated; Z88.0 Allergy status to penicillin
CPT/HCPCS: 80047; 80076; 83690; 83735; 85025; 87631; 87880; 93005; 96361; 96374; 99284; J1885; J2405

== ENCOUNTER 2023-04-24 15:43 | Inpatient (IN) | payer MEDICAID, OTHER ==
[~2023-04-24] VITALS: Ht 185.4 cm; Wt 85.0 kg
[~2023-04-24 15:43] MED LIST changes: -DOXY-350 PO; +DOXY-444 PO
[2023-04-24] MEDS ORDERED: OLANZapine ORAL DISINTEGRATING TAB 5MG PO ONE (16:00)
[2023-04-24 17:24] LABS: BASO # 0.1 10^3/uL (0.0-0.2); BASO % 0.6 % (0.0-1.0); EOS # 0.1 10^3/uL (0.0-0.5); EOS % 1.4 % (0.0-3.0); HEMATOCRIT 40.3 % (42.0-52.0); HEMOGLOBIN 13.5 g/dl (13.5-17.5); LYMPH # 2.6 10^3/uL (1.5-5.0); LYMPH % 31.1 % (24.0-44.0); MEAN CORPUSCULAR HEMOGLOBIN 29.5 pg (27.0-33.0); MEAN CORPUSCULAR HGB CONC 33.5 g/dl (32.0-36.5); MEAN CORPUSCULAR VOLUME 88.2 fl (80.0-96.0); MONO # 0.8 10^3/uL (0.0-0.8); MONO % 9.8 % (2.0-8.0); NEUTROPHILS # 4.8 10^3/uL (1.5-8.5); NEUTROPHILS % 56.9 % (36.0-66.0); PLATELET COUNT, AUTOMATED 235 10^3/uL (150-450); RED BLOOD COUNT 4.57 10^6/uL (4.30-6.10); WHITE BLOOD COUNT 8.5 10^3/uL (4.0-10.0)
[2023-04-24 17:26] LABS: ETHYL ALCOHOL (ETHANOL) < 0.003 % (0.000-0.010)
[2023-04-24 17:27] LABS: OSMOLALITY SERUM 289 MOSM/KG (275-295)
[2023-04-24 17:28] LABS: ACETAMINOPHEN LEVEL < 2.0 UG/ML (10.0-20.0); ALBUMIN 4.2 G/DL (3.2-5.2); ALKALINE PHOSPHATASE 100 U/L (46-116); ALT/SGPT 18 U/L (7.0-40); AST/SGOT 37 U/L (<34); BILIRUBIN,DIRECT 0.4 MG/DL (<0.4); BILIRUBIN,TOTAL 1.2 MG/DL (0.3-1.2); BLOOD UREA NITROGEN 13 MG/DL (9-23); CALCIUM LEVEL 10.1 MG/DL (8.5-10.1); CARBON DIOXIDE LEVEL 27 MMOL/L (20-31); CHLORIDE LEVEL 104 MMOL/L (98-107); CREATININE FOR GFR 0.88 MG/DL (0.70-1.30); GLOMERULAR FILTRATION RATE > 60.0 (>56); GLUCOSE, FASTING 73 MG/DL (60-100); POTASSIUM SERUM 3.5 MMOL/L (3.5-5.1); SALICYLATE LEVEL < 3.0 MG/DL (<30); SODIUM LEVEL 139 MMOL/L (136-145); TOTAL PROTEIN 7.8 G/DL (5.7-8.2)
[2023-04-24 17:31] LABS: THYROID STIMULATING HORMONE 1.209 uIU/ML (0.55-4.78)
[2023-04-24 20:02] LABS: BARBITURATES URINE NEGATIVE (NEGATIVE); BENZODIAZEPINES URINE NEGATIVE (NEGATIVE); COCAINE METABOLITE URINE NEGATIVE (NEGATIVE); METHADONE URINE NEGATIVE (NEGATIVE); OPIATES URINE NEGATIVE (NEGATIVE); PHENCYCLIDINE URINE NEGATIVE (NEGATIVE)
[2023-04-24 20:04] LABS: AMPHETAMINES LEVEL URINE POSITIVE (NEGATIVE); CANNABINOIDS URINE POSITIVE (NEGATIVE)
[2023-04-25] MEDS ORDERED: MAALOX 30 ML SUSP *UDC PO PRN (00:35)
[2023-04-25] MEDS ORDERED: MOM 30ML SUSPENSION UDC PO PRN (00:35)
[2023-04-25] MEDS ORDERED: LORazepam 1 MG TAB PO PRN (00:35)
[2023-04-25] MEDS ORDERED: diphenhydrAMINE 25MG CAP PO PRN (00:35)
[2023-04-25] MEDS ORDERED: NICOTINE 21MG/24HR 1 EA TRANSDERMAL TD PRN (00:35)
[2023-04-25] MEDS ORDERED: IBUPROFEN 400MG TAB PO PRN (00:35)
[2023-04-25] MEDS ORDERED: ACETAMINOPHEN TAB 650MG DOSE (2X325MG) PO PRN (00:35)
[2023-04-25] MEDS ORDERED: OLANZapine ORAL DISINTEGRATING TAB 5MG PO PRN (00:35)
[2023-04-25] MEDS: traZODone 50 MG TAB PO PRN (01:44)
[2023-04-25 02:06] VITALS: BP 131/86; TEMP 96.9; O2SAT 98
[2023-04-25 06:41] VITALS: BP 114/66; TEMP 96.9; O2SAT 97
[2023-04-25 14:16] LABS: INR 1.03; PARTIAL THROMBOPLASTIN TIME 29.1 SECONDS (24.8-34.2); PROTHROMBIN TIME 13.7 SECONDS (12.5-14.5)
[2023-04-25 16:55] VITALS: BP 134/82; TEMP 97.6; O2SAT 99
[2023-04-25] MEDS: APIXABAN 5 MG TAB (ELIQUIS) PO SCH (20:47)
[2023-04-26 06:51] VITALS: BP 138/81; TEMP 97.8; O2SAT 98
[2023-04-26] MEDS: APIXABAN 5 MG TAB (ELIQUIS) PO SCH ×2 (09:32→20:41)
[2023-04-26 18:22] VITALS: BP 131/75; TEMP 97.8; O2SAT 97
[2023-04-26] MEDS: traZODone 50 MG TAB PO PRN (20:41)
[2023-04-27 06:46] VITALS: BP 148/90; TEMP 98.6; O2SAT 99
[2023-04-27] MEDS: APIXABAN 5 MG TAB (ELIQUIS) PO SCH ×2 (09:54→20:59)
[2023-04-27] MEDS: QUEtiapine FUMARATE 100 MG TAB PO SCH ×2 (12:11→20:59)
[2023-04-27] MEDS: DIVALPROEX 250MG TAB PO SCH ×2 (12:11→20:59)
[2023-04-27 18:39] VITALS: BP 150/80; TEMP 98.6; O2SAT 99
[2023-04-27] MEDS: traZODone 50 MG TAB PO PRN (20:59)
[2023-04-28 06:26] VITALS: BP_SYST 134; BP_SYST 139; BP_DIAS 89; BP_DIAS 97; TEMP 97.9; O2SAT 100
[2023-04-28] MEDS: QUEtiapine FUMARATE 100 MG TAB PO SCH ×2 (09:24→20:45)
[2023-04-28] MEDS: APIXABAN 5 MG TAB (ELIQUIS) PO SCH ×2 (09:24→20:45)
[2023-04-28] MEDS: DIVALPROEX 250MG TAB PO SCH ×2 (09:24→20:45)
[2023-04-28 18:58] VITALS: BP 150/68; TEMP 98.5
[2023-04-28] MEDS: traZODone 50 MG TAB PO PRN (20:45)
[2023-04-29 06:49] VITALS: BP 140/85; TEMP 98.9; O2SAT 99
[2023-04-29] MEDS: DIVALPROEX 250MG TAB PO SCH (09:58)
[2023-04-29] MEDS: APIXABAN 5 MG TAB (ELIQUIS) PO SCH ×2 (09:59→22:17)
[2023-04-29] MEDS: QUEtiapine FUMARATE 100 MG TAB PO SCH ×2 (09:59→22:18)
[2023-04-29] MEDS: DIVALPROEX 500 MG TAB PO SCH ×2 (16:54→22:17)
[2023-04-29 18:53] VITALS: BP 146/86; TEMP 98.2; O2SAT 98
[2023-04-30 06:50] VITALS: BP 138/81; TEMP 97.2; O2SAT 99
[2023-04-30 07:01] VITALS: BP 139/84; TEMP 96.6; O2SAT 96
[2023-04-30] MEDS: APIXABAN 5 MG TAB (ELIQUIS) PO SCH ×2 (09:11→21:08)
[2023-04-30] MEDS: DIVALPROEX 500 MG TAB PO SCH ×3 (09:12→21:08)
[2023-04-30] MEDS: QUEtiapine FUMARATE 100 MG TAB PO SCH ×2 (09:12→21:08)
[2023-04-30 18:29] VITALS: BP 150/85; TEMP 98.6
[2023-05-01 06:45] VITALS: BP 138/80; TEMP 97.9; O2SAT 98
[2023-05-01] MEDS ORDERED: DEPA1TAB3 PO (09:09)
[2023-05-01] MEDS ORDERED: QUET100T2 PO (09:09)
[2023-05-01] MEDS ORDERED: NICO21PAT TD (09:09)
[2023-05-01] MEDS ORDERED: ELIQ5TAB PO (09:09)
[2023-05-01] MEDS: DIVALPROEX 500 MG TAB PO SCH (09:11)
[2023-05-01] MEDS: QUEtiapine FUMARATE 100 MG TAB PO SCH (09:11)
[2023-05-01] MEDS: APIXABAN 5 MG TAB (ELIQUIS) PO SCH (09:11)
== END 2023-05-01 15:30 | disposition home or self-care (01) | DRG 753 ==
LOC: M ED 15:43 → M ED INP 04-25 00:34 → M PSY 04-25 01:23
PROVIDERS: ADMIT Student in an Organized Health Care Education/Training Program; ATTEND Student in an Organized Health Care Education/Training Program
DX: F31.9 Bipolar disorder, unspecified (principal); F20.9 Schizophrenia, unspecified; F12.90 Cannabis use, unspecified, uncomplicated; Z91.128 Patient's intentional underdosing of medication regimen for other reason; F06.8 Other specified mental disorders due to known physiological condition; Z88.0 Allergy status to penicillin; Z79.899 Other long term (current) drug therapy; F17.200 Nicotine dependence, unspecified, uncomplicated

== ENCOUNTER 2023-09-25 11:30 | Inpatient (IN) | payer MEDICAID, OTHER ==
[~2023-09-25] VITALS: Ht 170.2 cm; Wt 83.8 kg
[~2023-09-25 11:30] MED LIST changes: +DEPA1TAB3 PO; +ELIQ5TAB PO; +NICO21PAT TD; +QUET100T2 PO
[2023-09-25] MEDS ORDERED: ARIP1TAB6 PO (11:46)
[2023-09-25] MEDS ORDERED: TRAZ-252 PO (11:47)
[2023-09-25] MEDS ORDERED: BUPR75TA5 PO (11:47)
[2023-09-25 13:28] LABS: APPEARANCE, URINE HAZY (CLEAR); BACTERIA, URINE AUTO NEGATIVE (NEGATIVE); BILIRUBIN, URINE AUTO NEGATIVE (NEGATIVE); BLOOD, URINE BLOOD NEGATIVE (NEGATIVE); COLOR, URINE AMBER (YELLOW); GLUCOSE, URINE (UA) AUTO NEGATIVE (NEGATIVE); KETONE, URINE AUTO TRACE mg/dL (NEGATIVE); LEUKOCYTE ESTERASE, URINE AUTO NEGATIVE (NEGATIVE); MUCUS, URINE SMALL (NEGATIVE); NITRITE, URINE AUTO NEGATIVE (NEGATIVE); PROTEIN, URINE AUTO 1+ mg/dL (NEGATIVE); RBC, URINE AUTO 4 /HPF (0-3); SPECIFIC GRAVITY URINE AUTO 1.031 (1.002-1.035); SQUAMOUS EPITHELIAL CELL UR AU 0 /HPF (0-6); WBC, URINE AUTO 1 /HPF (0-3)
[2023-09-25 13:30] LABS: HEMATOCRIT 35.3 % (42.0-52.0); HEMOGLOBIN 11.7 g/dl (13.5-17.5); MEAN CORPUSCULAR HEMOGLOBIN 30.6 pg (27.0-33.0); MEAN CORPUSCULAR HGB CONC 33.1 g/dl (32.0-36.5); MEAN CORPUSCULAR VOLUME 92.4 fl (80.0-96.0); PLATELET COUNT, AUTOMATED 247 10^3/uL (150-450); RED BLOOD COUNT 3.82 10^6/uL (4.30-6.10); WHITE BLOOD COUNT 9.1 10^3/uL (4.0-10.0)
[2023-09-25 13:46] LABS: ETHYL ALCOHOL (ETHANOL) < 0.003 % (0.000-0.010); VALPROIC ACID (DEPAKOTE) 32.8 UG/ML (50.0-100.0)
[2023-09-25 13:47] LABS: ALKALINE PHOSPHATASE 68 U/L (46-116); ALT/SGPT 14 U/L (7.0-40); AST/SGOT 18 U/L (<34); BILIRUBIN,DIRECT 0.1 MG/DL (<0.4); BILIRUBIN,TOTAL 0.3 MG/DL (0.3-1.2); BLOOD UREA NITROGEN 9 MG/DL (9-23); CALCIUM LEVEL 8.4 MG/DL (8.5-10.1); CARBON DIOXIDE LEVEL 30 MMOL/L (20-31); CHLORIDE LEVEL 108 MMOL/L (98-107); CPK CREATINE PHOSPHOKINASE 346 U/L (46-171); CREATININE FOR GFR 0.72 MG/DL (0.70-1.30); GLOMERULAR FILTRATION RATE > 60.0 (>56); GLUCOSE, FASTING 117 MG/DL (60-100); POTASSIUM SERUM 4.1 MMOL/L (3.5-5.1); SALICYLATE LEVEL < 3.0 MG/DL (<30); SODIUM LEVEL 143 MMOL/L (136-145); TOTAL PROTEIN 6.3 G/DL (5.7-8.2)
[2023-09-25 13:51] LABS: THYROID STIMULATING HORMONE 1.831 uIU/ML (0.55-4.78)
[2023-09-25 13:57] LABS: BARBITURATES URINE NEGATIVE (NEGATIVE); BENZODIAZEPINES URINE NEGATIVE (NEGATIVE); COCAINE METABOLITE URINE NEGATIVE (NEGATIVE); METHADONE URINE NEGATIVE (NEGATIVE); OPIATES URINE NEGATIVE (NEGATIVE); PHENCYCLIDINE URINE NEGATIVE (NEGATIVE)
[2023-09-25 13:59] LABS: AMPHETAMINES LEVEL URINE POSITIVE (NEGATIVE); CANNABINOIDS URINE POSITIVE (NEGATIVE)
[2023-09-25] MEDS ORDERED: NYSTATIN OINTMENT 15 GM TOP STA (15:30)
[2023-09-25] MEDS ORDERED: FUROSEMIDE 20 MG TAB PO ONE (15:30)
[2023-09-25] MEDS ORDERED: ACETAMINOPHEN 325 MG TAB PO ONE (15:30)
[2023-09-25] MEDS ORDERED: ACETAMINOPHEN TAB 650MG DOSE (2X325MG) PO PRN (17:35)
[2023-09-25] MEDS ORDERED: diphenhydrAMINE 25MG CAP PO PRN (17:35)
[2023-09-25] MEDS ORDERED: IBUPROFEN 400MG TAB PO PRN (17:35)
[2023-09-25] MEDS ORDERED: MAALOX 30 ML SUSP *UDC PO PRN (17:35)
[2023-09-25] MEDS ORDERED: MOM 30ML SUSPENSION UDC PO PRN (17:35)
[2023-09-25] MEDS ORDERED: ELIQ5TAB PO (19:02)
[2023-09-25] MEDS ORDERED: QUET100T2 PO (19:02)
[2023-09-25] MEDS ORDERED: HOME MED LIST COMPLETE! XX SCH (19:05)
[2023-09-26 01:10] VITALS: BP 137/88; TEMP 97.5; O2SAT 98
[2023-09-26 06:25] VITALS: BP 132/60; TEMP 98.7; O2SAT 94
[2023-09-26 06:26] VITALS: BP 126/60; TEMP 99.1; O2SAT 100
[2023-09-26] MEDS ORDERED: INFLUENZA QUADRIVALENT PF VACCINE 0.5ML SYRINGE IM.IMMUN ONE (12:00)
[2023-09-26] MEDS: GABAPENTIN 100 MG CAP PO SCH ×2 (16:08→20:06)
[2023-09-26 16:13] LABS: HEMOGLOBIN A1c 5.2 % (4.0-6.0)
[2023-09-26 16:18] VITALS: BP 123/76; TEMP 98.8; O2SAT 97
[2023-09-26] MEDS: traZODone 50 MG TAB PO PRN (20:05)
[2023-09-26] MEDS: APIXABAN 5 MG TAB (ELIQUIS) PO SCH (20:06)
[2023-09-27 06:48] VITALS: BP 124/98; TEMP 98.4; O2SAT 99
[2023-09-27] MEDS: GABAPENTIN 100 MG CAP PO SCH ×3 (08:39→20:29)
[2023-09-27] MEDS: buPROPion 75 MG TAB PO SCH (08:39)
[2023-09-27] MEDS: APIXABAN 5 MG TAB (ELIQUIS) PO SCH ×2 (08:39→20:29)
[2023-09-27 16:15] VITALS: BP 125/81; TEMP 98.5; O2SAT 97
[2023-09-27] MEDS: traZODone 50 MG TAB PO PRN (20:29)
[2023-09-28 06:39] VITALS: BP 126/74; TEMP 99.3; O2SAT 97
[2023-09-28] MEDS: APIXABAN 5 MG TAB (ELIQUIS) PO SCH ×2 (08:56→20:12)
[2023-09-28] MEDS: buPROPion 75 MG TAB PO SCH (08:56)
[2023-09-28] MEDS: GABAPENTIN 100 MG CAP PO SCH ×3 (08:56→20:12)
[2023-09-28 19:18] VITALS: BP 156/90; TEMP 98.4; O2SAT 97
[2023-09-28] MEDS: traZODone 50 MG TAB PO PRN (20:13)
[2023-09-29 06:24] VITALS: BP 129/70; TEMP 98.5; O2SAT 97
[2023-09-29] MEDS: buPROPion 75 MG TAB PO SCH (08:21)
[2023-09-29] MEDS: GABAPENTIN 100 MG CAP PO SCH ×3 (08:21→20:18)
[2023-09-29] MEDS: APIXABAN 5 MG TAB (ELIQUIS) PO SCH ×2 (08:21→20:18)
[2023-09-29 17:40] VITALS: BP 138/86; TEMP 97.9; O2SAT 100
[2023-09-29] MEDS: traZODone 50 MG TAB PO PRN (20:18)
[2023-09-30 06:15] VITALS: BP 122/80; TEMP 98.4; O2SAT 98
[2023-09-30] MEDS: buPROPion 75 MG TAB PO SCH (08:10)
[2023-09-30] MEDS: APIXABAN 5 MG TAB (ELIQUIS) PO SCH ×2 (08:10→20:08)
[2023-09-30] MEDS: GABAPENTIN 100 MG CAP PO SCH ×3 (08:10→20:08)
[2023-09-30 18:42] VITALS: BP 140/90; TEMP 97.4; O2SAT 98
[2023-10-01 06:44] VITALS: BP 128/73; TEMP 98.6; O2SAT 99
[2023-10-01] MEDS: buPROPion 75 MG TAB PO SCH (08:05)
[2023-10-01] MEDS: APIXABAN 5 MG TAB (ELIQUIS) PO SCH ×2 (08:05→20:03)
[2023-10-01] MEDS: GABAPENTIN 100 MG CAP PO SCH ×3 (08:05→20:03)
[2023-10-01 17:37] VITALS: BP 115/81; TEMP 98.2; O2SAT 99
[2023-10-02 06:40] VITALS: BP 132/82; TEMP 97.9; O2SAT 99
[2023-10-02] MEDS: APIXABAN 5 MG TAB (ELIQUIS) PO SCH (08:11)
[2023-10-02] MEDS: GABAPENTIN 100 MG CAP PO SCH (08:11)
[2023-10-02] MEDS: buPROPion 75 MG TAB PO SCH (08:11)
[2023-10-02] MEDS ORDERED: ABIL1TAB11 PO (11:01)
[2023-10-02] MEDS ORDERED: GABA-1171 PO (11:01)
[2023-10-02] MEDS ORDERED: BUPR75TA5 PO (11:01)
== END 2023-10-02 12:15 | disposition home or self-care (01) | DRG 757 ==
LOC: M ED 11:30 → M ED INP 17:35 → M PSY 09-26 00:37
PROVIDERS: ADMIT Student in an Organized Health Care Education/Training Program; ATTEND Student in an Organized Health Care Education/Training Program
DX: F06.8 Other specified mental disorders due to known physiological condition (principal); G62.9 Polyneuropathy, unspecified; F20.9 Schizophrenia, unspecified; F31.9 Bipolar disorder, unspecified; F12.90 Cannabis use, unspecified, uncomplicated; F17.210 Nicotine dependence, cigarettes, uncomplicated; Z79.01 Long term (current) use of anticoagulants; Z79.899 Other long term (current) drug therapy; Z88.0 Allergy status to penicillin; Z87.820 Personal history of traumatic brain injury; Z20.822 Contact with and (suspected) exposure to COVID-19

== ENCOUNTER → 2023-10-16 | Outpatient (REF) | payer MEDICAID ==
[~2023-10-16] MED LIST changes: +ABIL1TAB11 PO; +ARIP1TAB6 PO; +BUPR75TA5 PO; +GABA-1171 PO; +TRAZ-252 PO
[2023-10-16 17:22] LABS: CPK CREATINE PHOSPHOKINASE 173 U/L (46-171)
[2023-10-16 17:34] LABS: BLOOD UREA NITROGEN 8 MG/DL (9-23); CALCIUM LEVEL 9.2 MG/DL (8.5-10.1); CARBON DIOXIDE LEVEL 28 MMOL/L (20-31); CHLORIDE LEVEL 106 MMOL/L (98-107); CHOLESTEROL LEVEL 157 MG/DL (<200); CHOLESTEROL RISK RATIO 2.97 (<5); CREATININE FOR GFR 0.85 MG/DL (0.70-1.30); GLOMERULAR FILTRATION RATE > 60.0 (>56); GLUCOSE, FASTING 87 MG/DL (60-100); HDL CHOLESTEROL 52.8 MG/DL (>40); LDL CHOLESTEROL 88.2 MG/DL (<100); NON-HDL-C 104.2 MG/DL; POTASSIUM SERUM 4.5 MMOL/L (3.5-5.1); SODIUM LEVEL 141 MMOL/L (136-145); TRIGLYCERIDES LEVEL 80 MG/DL (<150)
== END ==
LOC: M LAB REF 16:13
PROVIDERS: ATTEND Nurse Practitioner Family
DX: R41.89 Other symptoms and signs involving cognitive functions and awareness (principal); Z87.820 Personal history of traumatic brain injury; Z68.24 Body mass index [BMI] 24.0-24.9, adult; R74.8 Abnormal levels of other serum enzymes; Z86.19 Personal history of other infectious and parasitic diseases; N17.9 Acute kidney failure, unspecified

== ENCOUNTER → 2024-06-15 | Outpatient (REF) ==
[~2024-06-15] MED LIST changes: +DOXY-440 PO; -DOXY-444 PO
== END ==
LOC: M PLAIMG 12:00
PROVIDERS: ATTEND Internal Medicine
DX: R52 Pain, unspecified (principal)

== ENCOUNTER → 2024-10-25 | Outpatient (REF) | payer MEDICAID ==
[2024-10-25 19:19] LABS: BASO # 0.1 10^3/uL (0.0-0.2); BASO % 0.7 % (0.0-1.0); EOS # 0.1 10^3/uL (0.0-0.5); EOS % 0.9 % (0.0-3.0); HEMATOCRIT 48.7 % (42.0-52.0); HEMOGLOBIN 15.9 g/dl (13.5-17.5); LYMPH # 2.1 10^3/uL (1.5-5.0); LYMPH % 25.8 % (24.0-44.0); MEAN CORPUSCULAR HEMOGLOBIN 30.1 pg (27.0-33.0); MEAN CORPUSCULAR HGB CONC 32.6 g/dl (32.0-36.5); MEAN CORPUSCULAR VOLUME 92.2 fl (80.0-96.0); MONO # 0.5 10^3/uL (0.0-0.8); MONO % 6.2 % (2.0-8.0); NEUTROPHILS # 5.4 10^3/uL (1.5-8.5); NEUTROPHILS % 66.2 % (36.0-66.0); PLATELET COUNT, AUTOMATED 281 10^3/uL (150-450); RED BLOOD COUNT 5.28 10^6/uL (4.30-6.10); WHITE BLOOD COUNT 8.2 10^3/uL (4.0-10.0)
[2024-10-25 19:50] LABS: ALBUMIN 4.4 G/DL (3.2-5.2); ALKALINE PHOSPHATASE 92 U/L (40-129); ALT/SGPT 24 U/L (7.0-40); AST/SGOT 23 U/L (<34); BILIRUBIN,TOTAL 0.7 MG/DL (0.3-1.2); BLOOD UREA NITROGEN 10 MG/DL (9-23); CALCIUM LEVEL 10.1 MG/DL (8.5-10.1); CARBON DIOXIDE LEVEL 31 MMOL/L (20-31); CHLORIDE LEVEL 103 MMOL/L (98-107); CHOLESTEROL LEVEL 183 MG/DL (<200); CREATININE FOR GFR 0.86 MG/DL (0.70-1.30); GLOMERULAR FILTRATION RATE > 60.0 (>56); GLUCOSE, FASTING 84 MG/DL (60-100); HDL CHOLESTEROL 53.8 MG/DL (>40); LDL CHOLESTEROL 116.6 MG/DL (<100); NON-HDL-C 129.2 MG/DL; POTASSIUM SERUM 5.2 MMOL/L (3.5-5.1); SODIUM LEVEL 143 MMOL/L (136-145); TOTAL PROTEIN 8.5 G/DL (5.7-8.2); TRIGLYCERIDES LEVEL 63 MG/DL (<150)
[2024-10-25 19:53] LABS: THYROID STIMULATING HORMONE 1.589 uIU/ML (0.55-4.78)
[2024-10-25 20:10] LABS: HEPATITIS B SURFACE ANTIGEN NEGATIVE (NEGATIVE)
[2024-10-25 20:23] LABS: HIV 1&2 SCREEN NEGATIVE (NEGATIVE)
== END ==
LOC: M LAB REF 16:38
PROVIDERS: ATTEND Nurse Practitioner Family
DX: F17.200 Nicotine dependence, unspecified, uncomplicated (principal); Z68.24 Body mass index [BMI] 24.0-24.9, adult; Z79.891 Long term (current) use of opiate analgesic; B18.2 Chronic viral hepatitis C; Z13.6 Encounter for screening for cardiovascular disorders

== ENCOUNTER 2024-12-28 10:45 | Outpatient (RCR) | payer OTHER | END 2025-01-16 | LOC: M PT 10:45 | PROVIDERS: ATTEND Psychiatry & Neurology Neurology | DX: R26.89 Other abnormalities of gait and mobility (principal) ==